=== PATIENT | male | born 1965 | race Caucasian/White ===

== ENCOUNTER 2019-12-09 08:21 | Emergency (ER) | payer SELFPAY ==
[~2019-12-09] VITALS: Ht 165.1 cm; Wt 72.6 kg
[2019-12-09 08:23] VITALS: BP 153/81
[2019-12-09] MEDS ORDERED: FLUORESCEIN OPTH STRIP 1 MG OP ONE (08:35)
[2019-12-09] MEDS ORDERED: TETRACAINE HCL/PF 0.5% OPTH 4 ML BTL OP ONE (08:35)
[2019-12-09] MEDS ORDERED: TOMOMETER 1 DEV DEV MC ONE (08:45)
[2019-12-09 09:10] VITALS: BP 153/81
== END 2019-12-09 09:10 | disposition home or self-care (01) ==
LOC: MED 08:21
DX: S05.01XA Injury of conjunctiva and corneal abrasion without foreign body, right eye, initial encounter (principal); E11.9 Type 2 diabetes mellitus without complications; I10 Essential (primary) hypertension; X58.XXXA Exposure to other specified factors, initial encounter; Y93.9 Activity, unspecified; Y92.89 Other specified places as the place of occurrence of the external cause; Y99.8 Other external cause status
CPT/HCPCS: 99283